=== PATIENT | female | born 1945 | race Caucasian/White ===

== ENCOUNTER → 2016-11-29 | Day surgery (SDC) | payer OTHER ==
--- NOTE | 2016-11-30 15:35 | PATH ---
Surgical Pathology Report Patient Name: BENITO RANDALL Med. Rec. #: [id number] /Age/Gender: 1945 (Age: 71) / F Account: [id number] Location: [facility] RADIOLOGY U Taken: 11/29/2016 Received: 11/29/2016 Reported: 11/30/2016 Physicians: Cari Cantrell M.D. Specimen(s) Received LEFT BREAST BIOPSY 11-12 O'CLOCK, 6CM FN Clinical History US: suspicious; mass 11-12 o'clock left, 6 cm FN; recently diagnosed right breast cancer Final Diagnosis BREAST, LEFT, 11-12:00, 6 CM FROM NIPPLE, US GUIDED CORE BIOPSY: INTRADUCTAL PAPILLOMA WITH SCLEROSIS. Comment: Immunohistochemical stains for p63, SMM-HC and ER performed and interpreted [facility] show the following: p63 and SMM-HC highlight preserved myoepithelial cells; ER immunostains is supportive of the interpretation above. Electronically Signed Chemo Torres M.D. Gross Description Received in formalin, labeled "left breast mass 11-12:00 6cm FN" are five cylindrical fragments of cheung-red and cheung-pink soft tissue ranging from 0.3-1.5 cm in length and averaging 0.3 cm in diameter. Submitted entirely in one cassette. Time to fixation: 2min Formalin fixation time:~7h AF/11/29/2016 final/11/29/2016
--- NOTE | 2016-11-30 16:13 | PATH ---
Surgical Pathology Report Patient Name: BENITO RANDALL [facility]. Rec. #: [id number] /Age/Gender: 1945 (Age: 71) / F Account: [id number] Location: [facility] Taken: 11/29/2016 Received: 11/29/2016 Reported: 11/30/2016 Physicians: Cari Cantrell M.D. Specimen(s) Received A: RIGHT BREAST BIOPSY 9:00, SITE 1 B: RIGHT BREAST BIOPSY 9:00, SITE 2, CAUDAL Clinical History Newly diagnosed right breast cancer; two enhancing lesions in the right breast at 9:00; site 2 is 1 cm caudal to site 1. Final Diagnosis A. BREAST, RIGHT, 9:00, SITE 1, MRI GUIDED CORE BIOPSY: INVASIVE DUCTAL CARCINOMA, MODERATELY DIFFERENTIATED WITH FOCAL APOCRINE FEATURES, MEASURING 2.5 MM IN THIS MATERIAL. 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 BACKGROUND FIBROCYSTIC CHANGE WITH ADENOSIS, FOCAL USUAL DUCTAL HYPERPLASIA AND COLUMNAR CELL CHANGE WITH ASSOCIATED MICROCALCIFICATIONS. Comment: Immunohistochemical stain for E-cadherin performed and interpreted [facility] on block A1 is positive in tumor cells with membranous staining supporting ductal phenotype. Results of Estrogen Receptor (ER) and Progesterone Receptor (NY) studies performed on block A1 at [facility] are as follows: ER (clone [id number] mouse monoclonal antibody by [employer]): >95% nuclear staining with strong intensity (Positive). NY (clone16 mouse monoclonal antibody by [employer]): ~60% nuclear staining with strong to moderate intensity (Positive). Results of Her2 and Ki67 studies will be reported separately in an addendum. Positive and negative controls (internal if applicable) show appropriate results. Formalin fixation and cold ischemic times are within current ASCO/CAP recommendations for ER, NY and Her2 testing. B. BREAST, RIGHT, 9:00, SITE 2, CAUDAL, MRI GUIDED CORE BIOPSY: FOCAL DUCTAL CARCINOMA IN SITU (DCIS), LOW NUCLEAR GRADE, CRIBRIFORM AND MICROPAPILLARY TYPES. 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 BACKGROUND FIBROCYSTIC CHANGE WITH ADENOSIS, FOCAL USUAL DUCTAL HYPERPLASIA AND FOCAL COLUMNAR CELLS CHANGE. Comment: Immunohistochemical stain for E-cadherin performed and interpreted [facility] on block B1 is positive in DCIS with membranous staining supporting ductal phenotype. Results of Estrogen Receptor (ER) and Progesterone Receptor (NY) studies performed on block B1 at [facility] are as follows: ER (clone [id number] mouse monoclonal antibody by [employer]): ~75% nuclear staining with moderate to strong intensity (Positive). NY (clone16 mouse monoclonal antibody by [employer]): ~30% nuclear staining with strong to moderate intensity (Positive). Positive and negative controls (internal if applicable) show appropriate results. Formalin fixation and cold ischemic times are within current ASCO/CAP recommendations for ER, [place] and Her2 testing. Electronically Signed Chemo Torres M.D. Addendum Reported: 12/02/2016 Addendum Diagnosis Results of Her2 (IHC) & Ki-67 studies performed on block A1 at [place] ([id number]) are as follows: Her2 IHC (EP3 from [employer], formerly known as [id number], using [employer] Polymer Refine detection kit): 2+ (Equivocal) Ki-67: ~5-10% (Low proliferation index) Results of pending Her2 FISH studies will be reported separately in an addendum. Positive and negative controls (internal if applicable) show appropriate results. Chemo Torres M.D. Addendum Reported: 12/08/2016 Addendum Diagnosis Results of Her2 FISH studies performed on block A1 at [place], [place] ([id number]) are as follows: Her2: 3.8 CEP17: 2.5 Ratio: 1.6 Interpretation: Negative Chemo Torres M.D. Gross Description A. Received in formalin, labeled "right breast 9:00 lesion #1" are multiple fragments of cheung-pink fibrofatty tissue 3.0 x 2 x 0.7 cm in aggregate size. Submitted entirely in one cassette. Time to fixation: 3 min Formalin fixation time:~6h B. Received in formalin, labeled "right breast 9:00 lesion #2" are multiple fragments of cheung-pink fibrofatty tissue 2.7 x 2 x 0.7 cm in aggregate size. Submitted in one cassette. Time to fixation: 3 min Formalin fixation time:~6h AF/11/29/2016 final/11/29/2016
== END | disposition home or self-care (01) ==
LOC: FRADUS-SUR 11:05
PROVIDERS: ATTEND Surgery
PROC: 0HBV3ZX Excision of Bilateral Breast, Percutaneous Approach, Diagnostic (ICD-10-PCS; principal; 2016-11-29)
DX: N63 Unspecified lump in breast (principal); C50.211 Malignant neoplasm of upper-inner quadrant of right female breast; D05.11 Intraductal carcinoma in situ of right breast; N60.81 Other benign mammary dysplasias of right breast; N60.21 Fibroadenosis of right breast; N64.89 Other specified disorders of breast; D24.2 Benign neoplasm of left breast
CPT/HCPCS: 19083; 19085; 19086; 76642-TC-50; 87899; 88305-TC; 88341-TC; 88342-TC; A4648; C1887